=== PATIENT | male | born 1970 | race Hispanic/Latino ===

== ENCOUNTER 2020-05-29 13:25 | Observation (INO) | payer BC, OTHER ==
[~2020-05-29] VITALS: Ht 167.6 cm; Wt 115.7 kg
[2020-05-29] MEDS ORDERED: HYDRALAZINE HCL 20 MG/ML VIAL IV PRN (17:45)
[2020-05-29] MEDS: CLINDAMYCIN HCL 150 MG CAP PO SCH (18:00)
[2020-05-29] MEDS ORDERED: CLINDAMYCIN 600 MG/D5% WATER 50 ML IV ONE (19:11)
[2020-05-29] MEDS ORDERED: ENOXAPARIN SODIUM 120 MG/0.8ML SQ ONE (19:11)
[2020-05-29 20:50] VITALS: BP 145/84
[2020-05-29] MEDS: ENOXAPARIN SODIUM 120 MG/0.8ML SQ SCH (21:00)
[2020-05-29] MEDS ORDERED: ENOXAPARIN SODIUM 40 MG/0.4 ML SYRINGE SQ SCH (21:00)
[2020-05-29 23:26] VITALS: BP 135/85
[2020-05-30] MEDS: CLINDAMYCIN HCL 150 MG CAP PO SCH ×3 (02:05→18:02)
[2020-05-30 04:04] VITALS: BP 121/73
--- NOTE | 2020-05-30 06:33 | NUR ---
received report from er nurse, admission assessment done, head to toe assessment done, timed medication given, covid swab done and sent to lab, safety maintained.
[2020-05-30] MEDS: METFORMIN HCL 500 MG TABLET PO SCH ×2 (08:00→18:02)
[2020-05-30 10:19] VITALS: BP 126/92
--- NOTE | 2020-05-30 11:30 | NUR ---
HOME MEDICATIONS home medications reconclied sent names and dosage thru text message
[2020-05-30 11:59] VITALS: BP 125/76
[2020-05-30] MEDS: ENOXAPARIN SODIUM 120 MG/0.8ML SQ SCH ×2 (12:19→20:36)
[2020-05-30] MEDS ORDERED: METF500S7 PO (14:36)
[2020-05-30] MEDS ORDERED: LOSA1TAB2 PO (14:37)
[2020-05-30] MEDS ORDERED: WARF-57 PO (14:38)
[2020-05-30] MEDS ORDERED: ACETAMINOPHEN 325 MG TAB PO PRN (15:30)
[2020-05-30] MEDS ORDERED: ONDANSETRON HCL 4 MG/2 ML VIAL IVP PRN (15:30)
[2020-05-30 17:22] VITALS: BP 126/89
--- NOTE | 2020-05-30 19:32 | NUR ---
INITIAL SW spoke with patient. He lives with spouse and has no home services or DME. Patient works war[employer] and is able to complete ADL's independently and drives. PCP is Dr. Deena Johns at [facility]. Pharmacy is [facility] or [facility] on [address] in [place]. No safety concerns by patient on returning home. DCP is home. Addendum: 05/30/20 at 1934 by PHILIP VILLAFANA SS Amended: Links added.
[2020-05-30 20:02] VITALS: BP 124/83
[2020-05-30 23:56] VITALS: BP 123/74
[2020-05-31] MEDS: CLINDAMYCIN HCL 150 MG CAP PO SCH ×2 (02:13→11:03)
[2020-05-31 03:59] VITALS: BP 133/80
[2020-05-31 08:00] VITALS: BP 127/88
--- NOTE | 2020-05-31 08:19 | NUR ---
CONSULT DR CHOWDHURY paged Dr Chowdhury notified of consult Dr Chowdhury returned page stated will see pt today please add to census
[2020-05-31] MEDS ORDERED: LOSARTAN/HYDROCHLOROTHIAZIDE 50-12.5MG TABLET PO SCH (09:00)
[2020-05-31] MEDS: METFORMIN HCL 500 MG TABLET PO SCH (10:50)
[2020-05-31 12:18] VITALS: BP 127/84
[2020-05-31] MEDS ORDERED: CYANOCOBALAMIN (VITAMIN B-12) 1,000 MCG TABLET PO SCH (12:30)
[2020-05-31] MEDS ORDERED: FOLIC ACID 1 MG TABLET PO SCH (12:30)
--- NOTE | 2020-05-31 12:30 | NUR ---
DR CHOWDHURY here to see patient ,discussed treatment planned states patient needs to be on Elequis 10mg PO BID for 7 days then [address] Chowdhury explained to pt the medication is costly but if the pt had any problems getting the meds he would give him samples from his office on followup appointment
--- NOTE | 2020-05-31 13:46 | NUR ---
[place]: Spoke w [employer]BOARD [employer] INSPECTOR Carissa, states pt will be needing Eliquis @ [facility] and is requesting for CM to obtain out of pocket cost for pt. Call placed to pt's room. States he usually uses [facility] for his medications, informed him facility is closed today. Pt states he has used [facility] [address] before. Call placed to [facility] to obtain quote for medication. Per Rx rep. they need to have actual script to run insurance benefits. Pt and [employer]BOARD [employer] INSPECTOR Carissa updated. Provided pt w [employer] coupon book. and advised to take it along w script to [facility] upon dc.
[2020-05-31] MEDS ORDERED: APIXABAN 5 MG TABLET PO ONE (14:08)
[2020-05-31] MEDS ORDERED: APIX5TAB PO (14:28)
--- NOTE | 2020-05-31 14:30 | NUR ---
DR ARAMBULA NOTIFIED pt complain of pain in upper left back area requests a muscle relaxer for the pain and requesting tylenol 3 Dr Arambula states resume TYLENOL 3 and will order muscle relaxer when she makes rounds
--- NOTE | 2020-05-31 16:45 | NUR ---
DISCHARGE INSTRUCTIONS discussed discharge instructions with pt started ELEQUIS 10mg po today at 1400 instructed pt to folow up with Dr Cazares in 1 week
== END 2020-05-31 16:50 | disposition home or self-care (01) ==
LOC: EDH 13:25 → EDHIP 19:05 → 3CH 20:24
PROVIDERS: ADMIT Hospitalist; ATTEND Hospitalist
DX: I82.401 Acute embolism and thrombosis of unspecified deep veins of right lower extremity (principal); Z20.828 Contact with and (suspected) exposure to other viral communicable diseases; I82.439 Acute embolism and thrombosis of unspecified popliteal vein; I10 Essential (primary) hypertension; E11.9 Type 2 diabetes mellitus without complications; E78.5 Hyperlipidemia, unspecified; Z79.01 Long term (current) use of anticoagulants; Z86.718 Personal history of other venous thrombosis and embolism
CPT/HCPCS: 36415 ×3; 80048 ×2; 80053; 80076; 82948 ×7; 83036; 85025 ×3; 85220; 85300; 85303; 85306; 85384; 85610; 85730; 85732; 87426; 93925; 93970; 96372; 99284; G0378 ×6; J1650 ×4; J3490; U0003